=== PATIENT | male | born 1965 | race Caucasian/White ===

== ENCOUNTER 2017-02-03 13:26 | Emergency (ER) | payer OTHER ==
[~2017-02-03] VITALS: Wt 90.5 kg
[~2017-02-03 13:26] MED LIST: FIORICET PO; HYDR-902 PO
--- NOTE | 2017-02-03 15:15 | RADRPT ---
PROCEDURE: XR Abdomen. CLINICAL INDICATION: LUQ pain TECHNIQUE: AP abdomen x-ray. COMPARISON: CT abdomen/pelvis 04/16/2016 FINDINGS: There are mildly gas distended, non dilated segments of small bowel, measuring up to approximately 2 .5 cm in diameter. No abnormal air-fluid levels are seen on the upright view. There is no evidence of free intra-abdominal air. There is a hshdzadt-vw-jrqgw amount of fecal material throughout the large bowel and rectum. A few small calcifications projecting over the lower pelvis are consistent with phleboliths, as seen on prior CT study There are mild degenerative changes of the visualized spine. IMPRESSION: 1. No definitive evidence of bowel obstruction or pneumoperitoneum. 2. Aomsighx-an-gcvpr amount of fecal material throughout the large bowel and rectum. RPTAT: QQ Physician Surekha Date Time Electronically viewed and signed by Physician Surekha on 02/03/2017 15:15 ZUHAIR/
[2017-02-03] MEDS ORDERED: POLY17PO6 PO (16:17)
--- NOTE | 2017-02-03 16:19 | ERD ---
ER Documentation Chief Complaint Date/Time DATE: 02/03/17 TIME: 16:17 Chief Complaint LEFT SIDE PAIN, ON AND OFF, NECK CRAMPS HPI This a 51-year-old male complains of 4 days ago he had 1-2 seconds of a sharp left upper quadrant pain. The pain did not radiate. He had no chest pain shortness of breath dizziness. The patient said the same pain happened again today while at rest. He says the last 1 or 2 seconds away. The patient says he had a lot of burping and a lot of flatulence. Patient has no back pain mild dysuria hematuria chest pain shortness of breath. 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 Says he has had pain in his left anterior neck SCM for 4 days straight he says the pain is there all day all night hurts to turn his head hurts to palpate the muscle. ROS All systems reviewed and are negative except as per history of present illness. Medications Home Meds Active Scripts Polyethylene Glycol* (Miralax*) 17 Gm Powd.pack, 17 GM PO DAILY, #7 Prov:CJ GARZA DO 02/03/17 Acetamin/Butalbital/Caffeine* (Fioricet*) [id number] Tab, 1 TAB PO Q6H Y for PAIN, #30 TAB Prov:MICHAEL MORALES PA-C 05/11/16 Hydrocodone/Acetaminophen ([address] 10-325 Tablet) 1 Each Tablet, 1 TAB PO Q6H Y for PAIN, #20 TAB Prov:HARESH WILDE 04/17/16 Allergies Allergies: Coded Allergies: No Known Drug Allergy (Verified Allergy, Unknown, 04/16/16) PMhx/Soc History of Surgery: Yes (LEFT KNEE SX) Anesthesia Reaction: No Hx Neurological Disorder: No Hx Respiratory Disorders: No Hx Cardiac Disorders: No Hx Psychiatric Problems: No Hx Miscellaneous Medical Probl: No Hx Alcohol Use: Yes Hx Substance Use: No Hx Tobacco Use: No Smoking Status: Never smoker FmHx Family History: No coronary disease Physical Exam Vitals Vital Signs Date Time Temp Pulse Resp B/P Pulse Ox O2 Delivery O2 Flow Rate FiO2 02/03/17 13:28 98.2 72 17 138/75 99 Physical Exam Const: Well-developed, well-nourished Head: Atraumatic, normocephalic Eyes: Normal Conjunctiva, PERRLA, EOMI, normal sclera, no nystagmus ENT: Normal External Ears, Nose and Mouth, moist mucus membranes. Neck: Full range of motion but painful to the left SCM, there is moderate SCM tenderness in the left neck. No meningismus, no lymphadenopathy. Resp: Clear to auscultation bilaterally, no wheezing, rhonchi, rales Cardio: Regular rate and rhythm, no murmurs, S1 S2 present Abd: Soft, non tender x 4, non distended. Normal bowel sounds, no guarding or rebound, no pulsitile abdominal masses or bruits Skin: No petechiae or rashes, no ecchymosis , no maculopapular rash Back: No midline or flank tenderness Ext: No cyanosis, or edema, FROM x 4, normal inspection, neurovascularly intact x 4 Neur: Awake and alert, STR 5/5 x 4, sensation intact x 4, no focal findings, cerebellum intact Psych: Normal Mood and Affect Results 24 hrs Laboratory Tests Test 02/03/17 14:30 Troponin I < 0.012ng/ml Procedures/MDM PROCEDURE: XR Abdomen. CLINICAL INDICATION: LUQ pain TECHNIQUE: AP abdomen x-ray. COMPARISON: CT abdomen/pelvis 04/16/2016 FINDINGS: There are mildly gas distended, non dilated segments of small bowel, measuring up to approximately 2.5 cm in diameter. No abnormal air-fluid levels are seen on the upright view. There is no evidence of free intra-abdominal air. There is a dvrcfiel-pf-byiay amount of fecal material throughout the large bowel and rectum. A few small calcifications projecting over the lower pelvis are consistent with phleboliths, as seen on prior CT study There are mild degenerative changes of the visualized spine. IMPRESSION: 1. No definitive evidence of bowel obstruction or pneumoperitoneum. 2. Ibakdpjf-lg-ohmtz amount of fecal material throughout the large bowel and rectum. RPTAT: QQ Physician Surekha Date Time Electronically viewed and signed by Physician Surekha on 02/03/2017 15: 15 RC/ CC: CJ GARZA DO EKG: Rate/Rhythm: Normal Sinus Rhythm,NL intervals QRS, ST, QT: NORMAL SD, QRS, QT] Impression: NORMAL EKG Patient's pain is likely due to constipation or gas stuck in the left upper quadrant. Patient's neck is clearly musculoskeletal and not cardiac in origin troponin is negative. Discharge home with [facility] to help him have better bowel movements. Departure Diagnosis: Primary Impression: Constipation Constipation type: unspecified constipation type Qualified Code: K59.00 - Constipation, unspecified constipation type Condition: Stable Patient Instructions: Constipation (Adult) CJ GARZA DO Feb 03, 2017 16:19
[2017-02-03 16:24] VITALS: BP 125/72; PULSE 67; RESP 16
== END 2017-02-03 16:25 | disposition home or self-care (01) ==
LOC: FTE 13:26
DX: K59.00 Constipation, unspecified (principal)
CPT/HCPCS: 36415; 74010; 84484; 93005; Z7502

== ENCOUNTER 2017-06-25 20:57 | Emergency (ER) | END 2017-06-26 03:40 | disposition home or self-care (01) ==